=== PATIENT | male | born 2000 | race Hispanic/Latino ===

== ENCOUNTER 2022-12-16 12:25 | Emergency (ER) | payer OTHER ==
[2022-12-16] MEDS ORDERED: KETOROLAC 30 MG/ML INJ ONE (14:51)
[2022-12-16] MEDS ORDERED: PROMETHAZINE INJ 25 MG/ML AMP ONE (14:51)
[2022-12-16] MEDS ORDERED: NA CHLORIDE 0.9% 1,000 ML ONE (14:51)
--- NOTE | 2022-12-16 15:21 | ER ---
Nurse's Notes [facility] Name: Hugo Carlos Age: 22 yrs Sex: Male : 2000 Arrival Date: 12/16/2022 Time: 12:29 Bed 11 Private MD: Diagnosis: Headache;Dental caries, unspecified Presentation: 12/16 13:52 Chief complaint: Patient states: L sided headache and dental pain x 2 weeks. ss Coronavirus screen: Client denies travel out of the [place] in the last 14 days. Ebola Screen: Patient denies exposure to infectious person. Patient denies travel to an Ebola-affected area in the 21 days before illness onset. Initial Sepsis Screen: Does the patient meet any 2 criteria? No. Patient's initial sepsis screen is negative. Does the patient have a suspected source of infection? No. Patient's initial sepsis screen is negative. Risk Assessment: Do you want to hurt yourself or someone else? Patient reports no desire to harm self or others. Onset of symptoms was November 29, 2022. 13:52 Method Of Arrival: Ambulatory ss 13:52 Acuity: ERI 4 ss Historical: - Allergies: 13:53 No Known Allergies; ss - Home Meds: 13:53 Amoxil [Active]; ibuprofen [Active]; ss - Social history:: Smoking status: Patient denies any tobacco usage or history of. Screenin:04 [facility] ED Fall Risk Assessment (Adult) History of falling in the last 3 months, ss including since admission No falls in past 3 months (0 pts). Abuse screen: Denies threats or abuse. Denies injuries from another. Nutritional screening: No deficits noted. Tuberculosis screening: Never had TB. Assessment: 14:00 General: Appears in no apparent distress. comfortable, Behavior is calm, cooperative. ss Pain: Complains of pain in left temporal area and left side of forehead. Cardiovascular: Capillary refill < 3 seconds is brisk in bilateral fingers. Respiratory: Airway is patent Respiratory effort is even, unlabored, Respiratory pattern is regular, symmetrical. Derm: Skin is intact, is healthy with good turgor, Skin is dry, Skin is pink, warm \T\ dry. normal. Musculoskeletal: Circulation, motion, and sensation intact. Range of motion: intact in all extremities. 16:04 Reassessment: Patient appears in no apparent distress at this time. Patient is alert, ss oriented x 3, equal unlabored respirations, skin warm/dry/pink. Patient denies pain at this time. Patient states feeling better. Patient states symptoms have improved. Neuro: Level of Consciousness is awake, alert, obeys commands. Vital Signs: 13:52 BP 158 / 108; Pulse 61; Resp 18; Temp 98.0(TE); Pulse Ox 100% on R/A; ss [place] Coma Score: 14:06 Eye Response: spontaneous(4). Verbal Response: oriented(5). Motor Response: obeys snw commands(6). Total: 15. ED Course: 12:29 Patient arrived in ED. rg4 13:45 Jessy Sharpe FNP-C is [facility]. snw 13:45 Codey Thorpe MD is Attending Physician. snw 13:53 Triage completed. ss 13:53 Arm band placed on right wrist. ss 14:14 Kalyani Lopez, RN is Primary Nurse. ss 14:36 Inserted saline lock: 22 gauge in left antecubital area, using aseptic technique. mm9 14:37 Patient has correct armband on for positive identification. Placed in gown. Bed in low mm9 position. Call light in reach. Side rails up X 1. Warm blanket given. environmental monitoring specialist on. Pulse ox on. 16:04 No provider procedures requiring assistance completed. Patient did not have IV access ss during this emergency room visit. Administered Medications: 14:52 Drug: NS 0.9% 1000 ml Route: IV; Rate: 1 bolus; Site: left antecubital; ss 16:05 Follow up: IV Status: Completed infusion; IV Intake: 1000ml ss 14:55 Drug: Ketorolac 30 mg Route: IVP; Site: left antecubital; ss 16:05 Follow up: Response: No adverse reaction; Marked relief of symptoms ss 14:58 Drug: Phenergan (promethazine) 12.5 mg Route: IVP; Site: left antecubital; ss 16:05 Follow up: Response: No adverse reaction ss Medication: 16:04 VIS not applicable for this client. ss Intake: 16:05 IV: 1000ml; Total: 1000ml. ss Outcome: 15:21 Discharge ordered by . snw 16:04 Discharged to home ambulatory, with friend. ss 16:04 Condition: good 16:04 Discharge instructions given to patient, Instructed on discharge instructions, follow up and referral plans. medication usage, Demonstrated understanding of instructions, follow-up care. 16:05 Patient left the ED. Signatures: Jessy Sharpe, ASSISTANT MEDIA PLANNER-C ASSISTANT MEDIA PLANNER-Csnw Kalyani Lopez, MADIE RN Zeynep Slade rg4 Natali Tucker mm9
--- NOTE | 2022-12-16 15:21 | EDPHYS ---
Physician Documentation [facility] Name: Hugo Carlos Age: 22 yrs Sex: Male : 2000 Arrival Date: 12/16/2022 Time: 12:29 Bed 11 Private MD: ED Physician Codey Thorpe HPI: 12/16 13:36 This 22 yrs old Male presents to ER via Unassigned with complaints of Headache.snw 13:36 The patient complains of pain to the left side of forehead and left temporal area. The snw patient describes the headache as pounding, throbbing. Onset: The symptoms/episode began/occurred gradually, 2 day(s) ago, and became persistent. Severity of symptoms: At its worst the pain was severe, in the emergency department the pain has improved, mildly. Headache History: Other pt dx with dental caries to left upper molar and need root canal - taking amoxil for infection. The symptoms are alleviated by nothing. the symptoms are aggravated by nothing. The patient has not experienced similar symptoms in the past. saw Dentist last week. Historical: - Allergies: 13:53 No Known Allergies; ss - Home Meds: 13:53 Amoxil [Active]; ibuprofen [Active]; ss - Social history:: Smoking status: Patient denies any tobacco usage or history of. ROS: 13:16 Eyes: Negative for injury, pain, redness, and discharge. snw 13:16 Neck: Negative for injury, pain, and swelling, Cardiovascular: Negative for chest pain, palpitations, and edema, Respiratory: Negative for shortness of breath, cough, wheezing, and pleuritic chest pain, Abdomen/GI: Negative for abdominal pain, nausea, vomiting, diarrhea, and constipation, Back: Negative for injury and pain, : Negative for injury, bleeding, discharge, and swelling, MS/Extremity: Negative for injury and deformity, Skin: Negative for injury, rash, and discoloration. 13:16 Constitutional: Positive for headache and tooth pain. 13:16 ENT: Positive for Teeth pain 13:16 Neuro: Positive for headache, to left frontal head. Exam: 13:16 Constitutional: This is a well developed, well nourished patient who is awake, alert, snw and in no acute distress. Head/Face: Normocephalic, atraumatic. Eyes: Pupils equal round and reactive to light, extra-ocular motions intact. Lids and lashes normal. Conjunctiva and sclera are non-icteric and not injected. Cornea within normal limits. Periorbital areas with no swelling, redness, or edema. Neck: Trachea midline, no thyromegaly or masses palpated, and no cervical lymphadenopathy. Supple, full range of motion without nuchal rigidity, or vertebral point tenderness. No Meningismus. Chest/axilla: Normal chest wall appearance and motion. Nontender with no deformity. No lesions are appreciated. Cardiovascular: Regular rate and rhythm with a normal S1 and S2. No gallops, murmurs, or rubs. Normal PMI, no JVD. No pulse deficits. Respiratory: Lungs have equal breath sounds bilaterally, clear to auscultation and percussion. No rales, rhonchi or wheezes noted. No increased work of breathing, no retractions or nasal flaring. Abdomen/GI: Soft, non-tender, with normal bowel sounds. No distension or tympany. No guarding or rebound. No evidence of tenderness throughout. Back: No spinal tenderness. No costovertebral tenderness. Full range of motion. Skin: Warm, dry with normal turgor. Normal color with no rashes, no lesions, and no evidence of cellulitis. MS/ Extremity: Pulses equal, no cyanosis. Neurovascular intact. Full, normal range of motion. Neuro: Awake and alert, GCS 15, oriented to person, place, time, and situation. Cranial nerves II-XII grossly intact. Motor strength 5/5 in all extremities. Sensory grossly intact. Cerebellar exam normal. Normal gait. Psych: Awake, alert, with orientation to person, place and time. Behavior, mood, and affect are within normal limits. Vital Signs: 13:52 BP 158 / 108; Pulse 61; Resp 18; Temp 98.0(TE); Pulse Ox 100% on R/A; ss [place] Coma Score: 14:06 Eye Response: spontaneous(4). Verbal Response: oriented(5). Motor Response: obeys snw commands(6). Total: 15. MDM: 13:23 Patient medically screened. snw 14:06 Data reviewed: vital signs, nurses notes. Counseling: I had a detailed discussion with snw the patient and/or guardian regarding: the historical points, exam findings, and any diagnostic results supporting the discharge/admit diagnosis, the need for outpatient follow up, to return to the emergency department if symptoms worsen or persist or if there are any questions or concerns that arise at home. Special discussion: I have referred the patient to see his PCP for further evaluation of high blood pressure. Based on the history and exam findings, there is no indication for further emergent testing or inpatient evaluation. I discussed with the patient/guardian the need to see a dentist for further evaluation of the symptoms. 15:19 Response to treatment: the patient's symptoms have markedly improved after treatment. snw ED course: pt is greatly improved. Sleeping in no distress with 500ml ns left to infuse. Administered Medications: 14:52 Drug: NS 0.9% 1000 ml Route: IV; Rate: 1 bolus; Site: left antecubital; ss 16:05 Follow up: IV Status: Completed infusion; IV Intake: 1000ml ss 14:55 Drug: Ketorolac 30 mg Route: IVP; Site: left antecubital; ss 16:05 Follow up: Response: No adverse reaction; Marked relief of symptoms ss 14:58 Drug: Phenergan (promethazine) 12.5 mg Route: IVP; Site: left antecubital; ss 16:05 Follow up: Response: No adverse reaction ss Disposition Summary: 12/16/22 15:21 Discharge Ordered Location: Home snw Condition: Stable snw Diagnosis - Headache snw - Dental caries, unspecified snw Followup: snw - With: Emergency Department - When: As needed - Reason: Worsening of condition Followup: snw - With: Private Physician - When: 2 - 3 days - Reason: Recheck today's complaints, Continuance of care, Re-evaluation by your physician Discharge Instructions: - Discharge Summary Sheet snw - Dental Pain snw - Analgesic Rebound Headache snw - Diet and Dental Disease snw - Rehydration, Adult snw Forms: - Medication Reconciliation Form snw - Thank You Letter snw - Antibiotic Education snw - Prescription Opioid Use snw Prescriptions: - promethazine 25 mg Oral Tablet - take 1 tablet by ORAL route every 6 hours As needed; 20 tablet; Refills: 0, snw Product Selection Permitted Signatures: Jessy Sharpe, KEYSHAWNC OYSTERMAN-Kalyani Wilson RN RN ss Corrections: (The following items were deleted from the chart) 13:20 13:16 Neuro: Positive for headache, snw snw
[2022-12-16 16:43] VITALS: BP 158/108; TEMP 98; O2SAT 100
== END 2022-12-16 16:05 | disposition home or self-care (01) ==
LOC: ER 12:25
DX: R51.9 Headache, unspecified (principal); K02.9 Dental caries, unspecified
CPT/HCPCS: 96361; 96375; 96374; 99284; J2550; J7030